=== PATIENT | female | born 1975 | race Caucasian/White ===

== ENCOUNTER → 2019-04-21 17:24 | Outpatient (CLI) | payer OTHER, SELFPAY ==
--- NOTE | ~2019-04-21 | MM_ITS ---
EXAMINATION: MM screening [facility] BI w josephine HISTORY: Screening mammogram TECHNIQUE: Craniocaudal and mediolateral oblique 3-D tomosynthesis images were obtained and synthetic 2-D images were generated. CAD analysis was submitted and interpreted. COMPARISON: 04/02/2018, 11/16/2014, 04/13/2008 BREAST PARENCHYMAL COMPOSITION: The breasts are extremely dense, which lowers the sensitivity of mamm ography. FINDINGS: Scattered benign-appearing calcifications are present. There is no evidence of suspicious m ass, calcification, or architectural distortion to suggest malignancy in either breast. There has bee n no suspicious interval change. IMPRESSION: 1. No mammographic evidence of malignancy. 2. Recommend routine screening mammography in one year. BI-RADS Category 2: Benign finding(s). Reviewed, dictated and finalized at location A.
== END ==
PROVIDERS: Visit Provider Obstetrics & Gynecology Gynecology
DX: Z12.31 Encounter for screening mammogram for malignant neoplasm of breast (principal)
CPT/HCPCS: 77063; 77067

== ENCOUNTER 2023-05-05 15:44 | Outpatient (CLI) | payer BC, SELFPAY ==
--- NOTE | ~2023-05-05 | US_ITS ---
EXAMINATION: US pelvic complete DATE: 05/05/2023 16:08 INDICATION: Uterine fibroids. Heavy periods. Comparison:No prior studies for comparison. TECHNIQUE: Multiple transabdominal and endovaginal sonographic images of the pelvis performed. FINDINGS: The uterus measures 14.1 x 9 x 7.1 cm. There are multiple uterine fibroids, largest measuri ng 4.8 cm. The endometrial complex measures 8 mm. The right ovary measures 3.2 x 1.8 x 2.6 cm and the left ovary measures 2.4 x 2.1 x 2.6 cm. There ar e small follicles in each ovary. Normal doppler signal in both ovaries. There is no free fluid in the pelvis. There are no abnormal masses seen on either side. IMPRESSION: 1. Enlarged fibroid uterus. Reviewed, dictated and finalized at location L. IMPRESSION: 1. Enlarged fibroid uterus.
== END 2023-05-05 15:45 ==
LOC: MICIMG 15:45
PROVIDERS: PCP Nurse Practitioner; Visit Provider Nurse Practitioner
DX: D25.9 Leiomyoma of uterus, unspecified (principal)
CPT/HCPCS: 76856

== ENCOUNTER 2023-06-23 17:40 | Outpatient (CLI) | payer BC, SELFPAY ==
[2023-06-23 18:22] LABS: Hematocrit 33.9 % (37.0-47.0); Hemoglobin 10.4 g/dL (12.0-15.0)
== END 2023-06-23 17:41 | disposition home or self-care (01) ==
PROVIDERS: PCP Nurse Practitioner; Visit Provider Anesthesiology
DX: Z01.818 Encounter for other preprocedural examination (principal); D64.9 Anemia, unspecified
CPT/HCPCS: 36415; 85014; 85018

== ENCOUNTER 2023-06-30 00:13 | Day surgery (SDC) | payer BC, SELFPAY ==
[2023-06-23 14:59] VITALS: BMI 22.6
--- NOTE | 2023-06-23 15:00 | PC.NURSE ---
Report to the Outpatient Waiting Room, entrance under the green pavilion located off [facility], at time _0730_ on date _[id number]_. Planned Procedure Time: _0930_. Time changes happen often and if your time is changed the preop area will call you the afternoon before. - You and your visitor will be asked to self-screen and do not enter if you have any COVID symptoms. - A mask is optional within the hospital at this time. Patients may have clear liquids (water, carbonated beverages, clear teas, apple juice) until 3 hours prior to surgery with a maximum of 20 ounces. - No food from midnight until time of surgery Take the following medications with a SIP of water the morning of surgery: ____Birth control pill DO NOT STOP ANY OF YOUR OTHER PRESCRIPTION MEDICATIONS PRIOR TO SURGERY ?EXCEPT THE FOLLOWING Medications to discontinue per physician Vitamin D2 and Ferrous sulfate Date to take last kukt___[id number] Please no make-up, nail frisian, hairspray, perfume, deodorant, or body powder the day of surgery. No jewelry (including any body piercings) or valuables the day of surgery, leave them at home. Please take a shower or bath the night before, or the morning of, surgery with an antibacterial soap. Wear comfortable, loose fitting clothing. - Jewelry must be removed prior to entering the operating room. Rings and piercings that are not removed may be cut off. - The hospital will not accept responsibility for valuables. - Please leave all valuables, including medications, at home the day of surgery. If you are going home after surgery, a licensed local company flatbed truck driver must drive you home. - NO public transportation without another adult if you receive anesthesia. - We recommend that an adult stay with you for 24 hours following discharge. - We also recommend that you do not drive, make important decision, drink alcoholic beverages, or take any drugs that were not prescribed by your health care provider for at least 24 hours after your discharge time. Follow any additional instructions given to you from your surgeon. If you or anyone in your household have experienced Covid symptoms in the past week, please notify your surgeon or the nurse liaison at the phone number below for possible testing. Telephone instructions given to __Rickie___and asked if any additional questions and then verbalized understanding. Patient advised to call surgeon office or pre surgery nurse liaison [phone] if any additional questions.
--- NOTE | 2023-06-30 07:26 | P.HP_ITS ---
History of Present Illness History of Present Illness Consent: Risks, benefits, and alternatives have been discussed and questions answered. Patient agrees to proceed with procedure. Chief complaint: menorrhagia, fibroids Narrative: Rickie Dwyer is a 47 year old female with worsening cycles and fibroids. It was recommended to proceed with D&C hysteroscopy to further evaluate. Risks of infection, bleeding, perforation, and fluid imbalance are reviewed. Possible pathology was also discussed. Patient voices understanding and agrees to proceed. 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 Surgical History Surgical History (Updated 06/30/23 @ 07:29 by Steffany Schwartz MD) History of hysteroscopy 2017 History of myomectomy 2009 Social History Social History Smoking status: Never smoker Living arrangements: with family Spiritual care concerns: No Meds Home Medications and Allergies Home Medications Medication Instructions Recorded Confirmed Type ergocalciferol (vitamin D2) 1,250 1,250 mcg PO WEEKLY 06/23/23 06/23/23 History mcg (50,000 unit) capsule ferrous sulfate 324 mg (65 mg 324 mg PO DAILY 06/23/23 06/23/23 History iron) tablet,delayed release levonorgestrel-ethinyl estradiol 1 tablet PO DAILY 06/23/23 06/23/23 History 0.1 mg-20 mcg tablet (Lessina) oxybutynin chloride 10 mg 10 mg PO DAILY 06/23/23 06/23/23 History tablet,extended release 24 hr sumatriptan succinate 50 mg tablet 50 mg PO DAILY PRN Migraine 06/23/23 06/23/23 History Headache Allergies Allergy/AdvReac Type Severity Reaction Status Date / Time No Known Allergies Allergy Unverified 06/23/23 14:38 Exam Const: General: healthy appearing and alert Orientation/consciousness: patient oriented x3 Resp: Effort & Inspection: normal respiratory effort : External Female Exam: normal external appearance Speculum Exam - Vagina: normal appearance of the vagina and normal vaginal discharge Speculum Exam - Cervix: normal appearance of the cervix Bimanual exam- vagina & uterus: consistency normal and enlarged ( approximately 14 week size) Bimanual Exam- Adnexa, other: normal adnexae and No adnexal tenderness Neuro: General: patient oriented x3 Assessment and Plan Assessment and plan (1) Menorrhagia: Code(s): N92.0 - Excessive and frequent menstruation with regular cycle Status: Acute Assessment and Plan: plan to proceed with D&C hysteroscopy with possible myomectomy
--- NOTE | 2023-06-30 07:26 | WPDHPUPDATE1 ---
History and Physical Update Update Date/Time: 06/30/23 07:26 History and Physical has been reviewed, including an updated exam of the patient. There are NO changes in the patient's condition. Risks, benefits, and alternatives have been discussed and questions answered. Patient agrees to proceed with procedure.
[2023-06-30 07:43] VITALS: BP 111/65; PULSE 88; RESP 16; TEMP 36.7; O2SAT 100
[2023-06-30] MEDS: ACETAMINOPHEN 500 MG TABLET 1000 MG PO (07:55)
[2023-06-30] MEDS: LACTATED RINGERS 1,000 ML 30 ML IV CONT (08:00)
--- NOTE | 2023-06-30 08:08 | P.PNAN_ITS ---
Anes - Initial Pre Proc Eval Procedure: Operation Date: 06/30/23 09:30 Proposed Procedures p Hysteroscopy, Dilation and Curettage, Possible Myomectomy - Steffany Schwartz MD Date/Time: 06/30/23 08:08 Surgeon: Steffany Schwartz MD Pre Op Diagnosis: menorrhagia, fibroids Patient Data Age: 47 Gender: F Height: 1.68 m Weight: 63 kg Last Vital Signs Temp 98.0 F 06/30/23 07:43 Pulse 88 06/30/23 07:43 Resp 16 06/30/23 07:43 BP 111/65 06/30/23 07:43 Pulse Ox 100 06/30/23 07:43 O2 Del Method Room Air 06/30/23 07:43 Allergies Allergy/AdvReac Type Severity Reaction Status Date / Time adhesive Allergy Mild Rash Verified 06/30/23 08:01 codeine AdvReac Intermediate Cramping Verified 06/30/23 08:02 of the Muscles oxycodone [From Percocet] AdvReac Intermediate Nausea Verified 06/30/23 08:02 Home Medications Medication Instructions Recorded Confirmed Type ergocalciferol (vitamin D2) 1,250 1,250 mcg PO WEEKLY 06/23/23 06/30/23 History mcg (50,000 unit) capsule ferrous sulfate 324 mg (65 mg 324 mg PO DAILY 06/23/23 06/30/23 History iron) tablet,delayed release levonorgestrel-ethinyl estradiol 1 tablet PO DAILY 06/23/23 06/30/23 History 0.1 mg-20 mcg tablet (Lessina) oxybutynin chloride 10 mg 10 mg PO DAILY 06/23/23 06/30/23 History tablet,extended release 24 hr sumatriptan succinate 50 mg tablet 50 mg PO DAILY PRN Migraine 06/23/23 06/30/23 History Headache Patient hx anesthesia problems: other (Pt reports that she had bradycardia/asystole w prev [place] for abd surgery, other details not avail.) Family hx anesthesia problems: none Results Review: All pre-operative results and documents have been reviewed as part of the pre- operative evaluation. 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 Surgical History Surgical History History of hysteroscopy 2017 History of myomectomy 2008 Social History Social History Smoking status: Never smoker Living arrangements: with family Spiritual care concerns: No Anes - Eval Final PreProcedure Day of Procedure 06/30/23 08:08 Patient weight: normal Heart: regular rate and rhythm Lungs: clear to auscultation Airway: Mallampati scale Neurological: alert and oriented Last oral intake: >/= 8 hours ASA classification: III Emergent: no Anesthetic plan: proceed Anesthesia type and monitoring: general and standard monitoring Results Review: All pre-operative results and documents have been reviewed as part of the pre- operative evaluation. Informed Consent: The patient's anesthetic plan and its attendant risks and benefits were discussed with the patient/family/POA. Questions were solicited and answers provided to the satisfaction of the patient/family/POA.
[2023-06-30] MEDS: KETOROLAC 30 MG/ML VIAL (*BKC) IV PUSH (09:37)
--- NOTE | 2023-06-30 09:56 | P.OP_ITS ---
Procedure Note - Detailed Date of Procedure 06/30/23 Pre-op Diagnosis menorrhagia, fibroids Post-op Diagnosis Same Procedure Performed Hysteroscopy with D&C and partial myomectomy Surgeon Steffany Schwartz MD Anesthesia MAC Findings The uterus is retroverted and 7cm. There are 2 large fibroids in the cavity 1 anterior and 1 posterior. The remainder of the endometrium that is visualized appears grossly normal. Description of Procedure The patient is taken to the operating room and placed under anesthesia in the dorsal lithotomy position. She was prepped and draped in the usual sterile fashion. [place] speculum was placed in the vagina and cervix grasped on the anterior lip with a tenaculum. The os Finders are needed to enter the internal os. The uterus is noted to be retroverted. The uterus sounds to 7cm. The cervix is serially dilated to a 6 Hegar. The large Aveeta hysteroscope was placed with the above-stated findings. The large Wave Aveeta resection device is placed. Under direct visualization the anterior fibroid is partially removed. The fluid quickly became blood tinged and the imbalance became 1L and the resection had to stop. The myoma graspers were used to remove additional pieces the fibroid that was shaved. When no further fibroids able to be grasped the sharp curette is used to curette the endometrium. All instruments were then removed. Sponge, needle, and instrument counts are correct per the OR staff. Estimated Blood Loss 50 Drains No Packing No Pathology Yes ( endometrial shavings and curettings) Complications No immediate complications Condition Stable Disposition PACU
[2023-06-30 10:00] VITALS: BP 99/54; PULSE 70; RESP 16; O2SAT 93
[2023-06-30 10:20] VITALS: BP 109/60; PULSE 70; RESP 16; O2SAT 99
[2023-06-30 10:40] VITALS: BP 122/84; PULSE 56; RESP 16; O2SAT 100
[2023-06-30 11:09] VITALS: BP 113/61; PULSE 56; RESP 16
== END 2023-06-30 11:12 | disposition home or self-care (01) ==
PROVIDERS: PCP Physician Assistant; Visit Provider Obstetrics & Gynecology Gynecology
PROC: 0U5B8ZZ Destruction of Endometrium, Via Natural or Artificial Opening Endoscopic (ICD-10-PCS; CPT 58563; principal; 2023-06-30 09:30)
DX: N92.0 Excessive and frequent menstruation with regular cycle (principal); D25.9 Leiomyoma of uterus, unspecified; Z98.890 Other specified postprocedural states
CPT/HCPCS: 58561; 88305; A9270; J1885; J2250; J2405; J2704; J3010; J7120